=== PATIENT | female | born 1995 | race Caucasian/White ===

== ENCOUNTER 2016-08-03 17:20 | Emergency (ER) | payer BC ==
--- NOTE | 2016-08-03 17:31 | PDOC ---
Rapid Medical Evaluation Chief Complaint: Edema Time Seen by Provider: 08/03/16 17:24 Medical Evaluation: Allergies Allergy/AdvReac Type Severity Reaction Status Date / Time No Known Allergies Allergy Verified 08/03/16 17:24 08/03/16 17:26 RME Note: I have performed a brief, in-person evaluation of this patient . This patient presents with CC: referred by Dr May for acute sinusitis; with increase in facial swelling today; Wants CT scan ordered Pertinent PE findings are: VSS, no fever; severe sinus tenderness I have ordered: U preg; The patient will proceed to ED for further evaluation. JR
[2016-08-03 17:32] VITALS: BP 125/77; PULSE 71; TEMP 97.8; BMI 25.0
--- NOTE | 2016-08-03 20:26 | PDOC ---
History of Present Illness <Lydia Mauricio - Last Filed: 08/03/16 20:32> - History of Present Illness Initial Comments: 08/03/16 20:57 The patient is a 21 year old female, with a significant past medical history of sinusitis, nasal polyps, and heart murmur, who presents to the emergency department sent by Dr. May for CT scan of sinuses today. The patient also states she has recently been found to have preventricular contractions and is scheduled to wear a holter monitor for a few days next week. She denies chest pain, shortness of breath, headache and dizziness. She denies fever, chills, nausea, vomit, diarrhea and constipation. She denies dysuria, frequency, urgency and hematuria. Allergies: seasonal allergies and pet dander Past surgical history: right hip labral repair and left shoulder labral repair Social history: denies toxic habits ENT - Dr. May <Mahi Ibrahim - Last Filed: 08/03/16 20:59> - General Chief Complaint: Edema Stated Complaint: FACE SWOLLEN/lLT EAR PAIN/SINUS PRESSURE Time Seen by Provider: 08/03/16 17:24 Past History - Past Medical History Cardiac Disorders: Yes (MVP) Kidney Stones: Yes - Immunization History Immunization Up to Date: Yes - Psycho/Social/Smoking Cessation Hx Anxiety: No Suicidal Ideation: No Smoking Status: No Smoking History: Never smoked Have you smoked in the past 12 months: No Number of Cigarettes Smoked Daily: 0 Information on smoking cessation initiated: No Hx Alcohol Use: No Drug/Substance Use Hx: No Substance Use Type: None <Lydia Mauricio - Last Filed: 08/03/16 20:32> <Mahi Ibrahim - Last Filed: 08/03/16 20:59> - Past Medical History Allergies/Adverse Reactions: Allergies Allergy/AdvReac Type Severity Reaction Status Date / Time No Known Allergies Allergy Verified 08/03/16 17:24 Home Medications: Ambulatory Orders NK [No Known Home Medication] 08/03/16 Review of Systems - Review of Systems Able to Perform ROS?: Yes Comments:: 08/03/16 20:57 CONSTITUTIONAL: Absent: fever, chills, diaphoresis, generalized weakness, malaise, loss of appetite HEENT: (+) sinusitis. Absent: rhinorrhea, throat pain, throat swelling, difficulty swallowing, mouth swelling, ear pain, eye pain, visual Changes CARDIOVASCULAR: Absent: chest pain, syncope, palpitations, irregular heart rate, lightheadedness , peripheral edema RESPIRATORY: Absent: cough, shortness of breath, dyspnea with exertion, orthopnea, wheezing, stridor, hemoptysis GASTROINTESTINAL: Absent: abdominal pain, abdominal distension, nausea, vomiting, diarrhea, constipation, melena, hematochezia GENITOURINARY: Absent: dysuria, frequency, urgency, hesitancy, hematuria, flank pain, genital pain MUSCULOSKELETAL: Absent: myalgia, arthralgia, joint swelling SKIN: Absent: rash, itching, pallor HEMATOLOGIC/IMMUNOLOGIC: Absent: easy bleeding, easy bruising, lymphadenopathy, frequent infections ENDOCRINE: Absent: unexplained weight gain, unexplained weight loss, heat intolerance, cold intolerance NEUROLOGIC: Absent: headache, focal weakness or paresthesias, dizziness, unsteady gait, seizure, mental status changes, bladder or bowel incontinence PSYCHIATRIC: Absent: anxiety, depression, suicidal or homicidal ideation, hallucinations. <Mahi Ibrahim - Last Filed: 08/03/16 20:59> *Physical Exam - Vital Signs Last Vital Signs Temp Pulse Resp BP Pulse Ox 97.8 F 71 18 125/77 100 08/03/16 17:24 08/03/16 17:24 08/03/16 17:24 08/03/16 17:24 08/03/16 17:24 <Lydia Mauricio - Last Filed: 08/03/16 20:32> - Vital Signs Last Vital Signs Temp Pulse Resp BP Pulse Ox 97.8 F 71 18 125/77 100 08/03/16 17:24 08/03/16 17:24 08/03/16 17:24 08/03/16 17:24 08/03/16 17:24 - Physical Exam Comments: 08/03/16 20:58 GENERAL: Well developed, well nourished. Awake and alert. No acute distress. HEENT: Normocephalic, atraumatic. PERRLA, EOMI. No conjunctival pallor. Sclera are non- icteric. Moist mucous membranes. Oropharynx is clear. NECK: Supple. Full ROM. No JVD. Carotid pulses 2+ and symmetric, without bruits. No thyromegaly. No lymphadenopathy. CARDIOVASCULAR: Regular rate and rhythm. No murmurs, rubs, or gallops. Distal pulses are 2+ and symmetric. PULMONARY: No evidence of respiratory distress. Lungs clear to auscultation bilaterally. No wheezing, rales or rhonchi. ABDOMINAL: Soft. Non-tender. Non-distended. No rebound or guarding. No organomegaly. Normoactive bowel sounds. MUSCULOSKELETAL Normal range of motion at all joints. No bony deformities or tenderness. No CVA tenderness. EXTREMITIES: No cyanosis. No clubbing. No edema. No calf tenderness. SKIN: Warm and dry. Normal capillary refill. No rashes. No jaundice. NEUROLOGICAL: Alert, awake, appropriate. Cranial nerves 2-12 intact. Normoreflexic in the upper and lower extremities. Normal speech. Toes are down-going bilaterally. Gait is normal without ataxia. PSYCHIATRIC: Cooperative. Good eye contact. Appropriate mood and affect. <Mahi Ibrahim - Last Filed: 08/03/16 20:59> ED Treatment Course - ADDITIONAL ORDERS Additional order review: Laboratory Results 08/03/16 18:00 Urine HCG, Qual Negative - RADIOLOGY Radiology Studies Ordered: Category Date Time Status SINUS CT W/O CONTRAST [CT] Stat CT Scan 08/03/16 18:15 Completed <Lydia Mauricio - Last Filed: 08/03/16 20:32> - ADDITIONAL ORDERS Additional order review: Laboratory Results 08/03/16 18:00 Urine HCG, Qual Negative <Mahi Ibrahim - Last Filed: 08/03/16 20:59> Medical Decision Making - Medical Decision Making 08/03/16 20:32 pt seen by ENT today and sent for CT sinuses ct scan reveals acute and chronic sinusitis w either polyp or retention cyst -continue your antibiotics -follow up with Dr May - <Lydia Mauricio - Last Filed: 08/03/16 20:32> - Medical Decision Making 08/03/16 20:58 Dr. May was called twice before receiving a call back from his associate Dr. Moyer at 20:30. <Mahi Ibrahim - Last Filed: 08/03/16 20:59> *DC/Admit/Observation/Transfer <Lydia Mauricio - Last Filed: 08/03/16 20:32> - Attestations Scribe Attestion: 08/03/16 20:58 Documentation prepared by Mahi Ibrahim, acting as medical sociologist for Lydia Mauricio MD <Mahi Ibrahim - Last Filed: 08/03/16 20:59> Diagnosis at time of Disposition: Sinusitis Qualifiers: Sinusitis location: ethmoidal Chronicity: chronic Qualified Code(s): J32.2 - Chronic ethmoidal sinusitis - Discharge Dispostion Disposition: HOME Condition at time of disposition: Stable - Referrals Referrals: Reji Pete MD [Primary Care Provider] - - Patient Instructions Printed Discharge Instructions: DI for Sinusitis Additional Instructions: please followup with Dr May Take your antibiotics
== END 2016-08-03 20:38 | disposition home or self-care (01) ==
LOC: JER 17:20
DX: J32.2 Chronic ethmoidal sinusitis (principal); I34.1 Nonrheumatic mitral (valve) prolapse; Z87.442 Personal history of urinary calculi
CPT/HCPCS: 70486-TC; 84703; 99282-25

== ENCOUNTER 2016-09-16 09:47 | Day surgery (SDC) | payer BC ==
[2016-09-15 11:57] VITALS: BMI 24.0
--- NOTE | 2016-09-15 19:21 | PREOP ---
DATE OF ADMISSION: 09/16/2016 ADMISSION DIAGNOSIS: Nasoseptal deviation, chronic pansinusitis, large galo bullosa. HISTORY OF PRESENT ILLNESS: This 21-year-old female has had a long history of nasal and sinus problems, which have failed to improve with appropriate and aggressive medical therapy. She has been on numerous antibiotics as well as nasal sprays. She has purulent nasal drainage as well as headache, nasal congestion, postnasal drainage, and sinus pressure. There are no visual disturbances. She has had accompanying mouth breathing and throat pain. She has been found to have chronic pansinusitis as well as deviation of the septum on CT scan, is now admitted for nasal septoplasty and endoscopic sinus surgery. PAST MEDICAL HISTORY: Primary medical doctor is Reji Pete MD. Her past medical history includes mitral valve prolapse, kidney stones, food allergies, exercise-induced asthma. Past medical history also includes fibromyalgia. She has never smoked. There are no allergies to medications. Present medications include fluticasone nasal spray, cetirizine, Nuvaring, Singulair. Her past surgical history includes a right hip bone spur and left shoulder surgery. She has had general anesthesia with some postoperative nausea. Bleeding history is negative. Family history is negative for bleeding problems. Her mother did have a possible reaction to an anesthetic. EXAMINATION: The patient is a well-developed female in no acute distress. Head is normal. Eyes clear. Ears unremarkable. The nose has significant nasal congestion. The nasal septum is intact but significantly deviated. Mucosa is edematous and there is thick mucus. Polyps are present, left greater than right, and there is significant polypoid degeneration of the left middle turbinate. The middle meatus also has polyps. Sphenoethmoid recess is difficult to visualize. The nasopharynx is clear. DATA: Preoperative labs are pending. CT scan of the paranasal sinuses performed at [facility] on August 03, 2016, demonstrates moderate deviation of the septum to the right. There is a moderate partially opacified galo bullosa in the left middle turbinate. There is partial opacification of the ethmoid air cells and thickening of the bilateral maxillary sinuses including a retention cyst or polyp on the left measuring 1.7 cm. Partial opacification of the sphenoid sinuses is seen with thickening of the frontal sinuses. The sphenoethmoid recesses are obstructed bilateral and there is also obstruction of the bilateral maxillary ostia and obstruction of the right and left frontoethmoid recesses. IMPRESSION: Chronic pansinusitis, nasal septal deviation, left galo bullosa. PLAN: Endoscopic sinus surgery to address ethmoid, maxillary, sphenoid, and frontal sinuses, nasal septoplasty, and excision of galo bullosa under general anesthesia. INFORMED CONSENT: The patient understands the indications, alternatives, nature, risks and benefits of the proposed surgery, potential complications including but not limited to anesthesia, bleeding, infection, recurrence, numbness, hole in the septum, reduced sense of smell, eye injury and brain injury were discussed in detail. She understands and accepts these risks and wishes to proceed with surgery. Questions are answered fully. KEATON ELIZONDO M.D. AVRIL/[id number]
--- NOTE | 2016-09-16 12:49 | HP ---
History & Physical Update - History History: No Change - Physical Physical: No Change - Assessment Assessment: No Change - Plan Plan: No Change
[2016-09-16] MEDS ORDERED: LIDOCAINE 1%/EPI 1:100000 (50 ML MULTI DOSE VIAL) ONE (12:50)
[2016-09-16] MEDS ORDERED: MIDAZOLAM HCL 2 MG/2 ML SINGLE DOSE VIAL ONE ×2 (12:58)
[2016-09-16] MEDS ORDERED: COCAINE HCL 4% TOPICAL SOLUTION 4 ML BOTTLE TP ONE ×2 (12:58→13:53)
[2016-09-16] MEDS ORDERED: PROPOFOL 20 ML ONE (12:59)
[2016-09-16] MEDS ORDERED: ROCURONIUM BROMIDE 50 MG/5 ML VIAL ONE (12:59)
[2016-09-16] MEDS ORDERED: DEXAMETHASONE SOD PHOSPHATE 4 MG/1 ML VIAL ONE (13:46)
[2016-09-16] MEDS ORDERED: LIDOCAINE 1%/EPI 1:100000 (50 ML MULTI DOSE VIAL) PNB ONE (13:52)
[2016-09-16] MEDS ORDERED: DESFLURANE GAS 240 ML BOTTLE IH ONE (14:12)
[2016-09-16] MEDS ORDERED: BACITRACIN 15 GM TUBE TOPICAL OINTMENT ONE (14:55)
[2016-09-16] MEDS ORDERED: NEOSTIGMINE METHYLSULFATE 0.5 MG/ML - 10 ML MDV ONE (15:04)
[2016-09-16] MEDS ORDERED: oxyCODONE HCL 5 MG TABLET PO PRN (15:20)
[2016-09-16] MEDS ORDERED: ACETAMINOPHEN 325 MG TABLET (FP) PO PRN (15:20)
[2016-09-16] MEDS ORDERED: TRIMETHOBENZAMIDE HCL 200MG/2ML INJ IM PRN (15:20)
[2016-09-16] MEDS ORDERED: PROMETHAZINE HCL 25 MG/1 ML VIAL IVPUSH PRN (15:26)
[2016-09-16] MEDS ORDERED: ONDANSETRON 4 MG/2 ML VIAL IVPUSH PRN (15:26)
--- NOTE | 2016-09-16 15:27 | OP ---
Operative Note - Note: Operative Date: 09/16/16 Pre-Operative Diagnosis: chronic pansinusitis, left galo bullosa, inferior turbinate hypertrophy, deviated septum Operation: bilateral endoscopic ethmoidectomy, anterior and posterior, bilateral endoscopic maxillary antrostomy, endoscopic resection of left galo bullosa, partial resection right middle turbinate, image guidance; balloon sinuplasty bilateral frontal and bilateral sphenoid sinuses; bilateral infeior turbinate therapeutic outfracture and mural cauterization Findings: chronic sinusitis allegra ethmoid, maxillary obstructed frontoethmoidal and sphenoethmoid recesses large galo bullosa left right middle turbinate hypertrophy inferior turbinate hypertrophy deviated septum, impact not significant after treatment of middle and inferior turbinates. Implants: none Post-Operative Diagnosis: Same as Pre-op Surgeon: Dong May Anesthesiologist/PAYMENT MANAGER: Cosme Vázquez Anesthesia: General Specimens Removed: left middle turbinate/ethmoid tissue. right middle turbinate /ethmoid tissue Estimated Blood Loss (mls): 30 Blood Volume Replaced (mls): 0 Operative Report Dictated: Yes
[2016-09-16] MEDS ORDERED: LACTATED RINGERS SOLUTION 1,000 ML IV SCH (15:30)
[2016-09-16] MEDS ORDERED: ONDANSETRON 4 MG/2 ML VIAL ONE (16:52)
[2016-09-16 17:47] VITALS: TEMP 98.5
[2016-09-16 19:00] VITALS: BP 126/67; PULSE 77
--- NOTE | 2016-09-18 14:01 | PATH ---
Surgical Pathology Report Patient Name: AGNES HERZOG Med. Rec. #: [id number] /Age/Gender: 1995 (Age: 21) / F Account: [id number] Location: [facility] SURGICAL Taken: 09/16/2016 Received: 09/17/2016 Reported: 09/18/2016 Physicians: Dong May M.D. Specimen(s) Received A: LEFT MIDDLE & TURBINATE & ETHMOID TISSUE B: RIGHT MIDDLE TURBINATE & ETHMOID TISSUE Clinical History Deviated nasal septum Final Diagnosis A. MIDDLE TURBINATE AND ETHMOID TISSUE, LEFT, RESECTION: BENIGN SINONASAL MUCOSA WITH CHRONIC INFLAMMATION AND FIBROSIS AND FRAGMENTS OF SCLEROTIC APPEARING BONE. B. MIDDLE TURBINATE AND ETHMOID TISSUE, RIGHT, RESECTION: BENIGN SINONASAL MUCOSA WITH CHRONIC INFLAMMATION AND FIBROSIS AND FRAGMENTS OF SCLEROTIC APPEARING BONE. Electronically Signed Job Hunt M.D. Gross Description A. Received in formalin labeled "left middle turbinate and ethmoid tissue" is a 3.8 x 2.5 x 0.3 cm aggregate of gonsalez, irregular portions of cartilage and possible bone. Saute Chef sections are submitted in one cassette, following decalcification. B. Received in formalin labeled "right middle turbinate and ethmoid tissue" is a 1.8 x 1.5 x 0.2 cm aggregate of gonsalez soft tissue, cartilage and bone fragments. A solar sales representative and assessor portion is submitted in one cassette, following decalcification. /09/17/201609/17/2016
--- NOTE | 2016-09-26 07:14 | OP ---
DATE OF OPERATION: 09/16/2016 PREOPERATIVE DIAGNOSIS: Chronic pansinusitis, left galo bullosa, inferior turbinate hypertrophy, deviated septum. POSTOPERATIVE DIAGNOSIS: Chronic pansinusitis, left galo bullosa, inferior turbinate hypertrophy, deviated septum. PROCEDURE: Bilateral endoscopic ethmoidectomy anterior and posterior. Bilateral endoscopic maxillary enterostomy. Endoscopic resection of left galo bullosa. Partial resection of right middle turbinate. Image guidance. Balloon sinuplasty bilateral frontal sinuses. Balloon sinuplasty bilateral sphenoid sinuses. Bilateral inferior turbinate therapeutic outfracture and mirror cauterization. SURGEON: Dong May MD ANESTHESIOLOGIST: Cosme Vázquez MD ANESTHESIA: General via endotracheal tube. INDICATIONS: This a 21-year-old female has had chronic sinus problems, which have failed to improve with appropriate medical therapy. CT scan demonstrates marked ethmoid and maxillary sinus disease as well as obstruction of the frontal and sphenoid recesses without air-fluid levels in the frontal or sphenoid. There is also some deviation of the septum and a massive left galo bullosa. She is now referred for surgical treatment. FINDINGS: Mild deviation of the septum without obstruction following turbinate surgery, inferior turbinate hypertrophy primarily soft tissue, massive left galo bullosa with obstruction, right middle turbinate hypertrophy with obstruction, chronic sinusitis ethmoid and maxillary sinuses, narrowed frontal and sphenoid drainage pathways. DESCRIPTION OF PROCEDURE: The patient was brought to the operating room and placed on the operating room table in supine position. General endotracheal anesthesia was induced to a satisfactory level. She was prepped and draped in the usual fashion for surgery. CT scan images were utilized with the madvertise device, and she was properly registered. Lidocaine with epinephrine was infiltrated, and cocaine 4 % was packed within the nasal cavities. Nasal endoscopy was performed with a 0-degree telescope. Deviation of the septum was obtained primarily to the left side posteriorly. A massive left galo bullosa was seen. Nasal pharynx was clear. Significant polypoid disease was found at both middle turbinates. The middle turbinates were injected with lidocaine with epinephrine, and lateral nasal buitrago were also injected. Cocaine 4% was injected within the middle meatus. Initially, the Entellus sinus balloon was attempted to be passed into the frontal sinuses; however, the significant middle turbinate hypertrophy prevented this; therefore, turbinate work was performed first. The left galo bullosa was incised with a sickle knife, and the scissors were then used to incise the galo bullosa. A small mucopyocoele was found within this. The lateral lamella was removed. The medial lamella was also trimmed inferiorly. The remnant was cauterized. Significant improvement in the middle meatus was obtained. Partial resection of the right middle turbinate was also performed, and the remnant was cauterized. Next, the Entellus balloon was then utilized. Initially the Medtronic Fusion was used with the frontal ostium seeker, and the frontal ostium was identified. Next, the left frontal ostium was cannulated with the Entellus balloon. The left frontal sinus transilluminated. The balloon was advanced and inflated for 20 seconds and then deflated and the assembly was removed. Next, the procedure was repeated on the right frontal sinus. Again, the ostium was identified and confirmed with the Medtronic Fusion. The Entellus balloon was then advanced and position confirmed with transillumination. The balloon was advanced, inflated for 20 seconds, and then deflated. The assembly was removed. Attention was then turned to the sphenoid sinuses. The guide was then straightened using bending tool. The left sphenoid ostium was identified and cannulated, the balloon advanced and inflated for 20 seconds. It was deflated and removed. The right sphenoidotomy was also identified, cannulated with the Entellus balloon with balloon advanced, inflated, and then deflated. Patent sphenoid ostia were observed afterwards. Attention was then turned toward the ethmoid sinuses. The upbiting forceps and the microdebrider were then used. The uncinate process was removed on the left side. Anterior and then posterior ethmoidectomy was performed on the left. The lamina propria and the fovea ethmoidalis were preserved. Significantly diseased tissue was removed. Next, the maxillary sinus ostium was obtained with bulb tip seeker and then enlarged with a back biting and forward biting forceps. The anterior of the sinus was examined, and reversibly diseased tissue was found. Attention was then turned toward the right paranasal sinuses. The right ethmoid sinus was then opened. The uncinate process was removed. The anterior and then posterior ethmoidectomy was performed with the ethmoid forceps and the microdebrider. The lamina propria and the fovea ethmoidalis were preserved. Again, diseased tissue was identified and removed. The right maxillary sinus was then treated by identifying the natural ostium and then enlarged with the reverse and forward biting forceps. Again, the anterior of the sinuses was examined, and there were no irreversible lesions. The wall of sinus was opened. The nasal septum was identified, and the deviation, though present, did not impair the airway nor did it impair sinus drainage. Therefore, septoplasty was deferred. Finally, significant anterior turbinate hypertrophy was identified. Therapeutic outfracture was performed bilaterally and the mirror cauterization with the suction cautery was performed in an island fashion. The patient tolerated the procedure well. NasoPore dressings were placed within the ethmoid cavities bilaterally. Folded Telfa gauze was then placed coated with antibiotic ointment in the inferior nasal cavities keeping the inferior turbinates in a lateralized position. The patient tolerated the procedure well. She was then awakened from general anesthesia and transferred to PACU in stable condition. Estimated blood loss was 30 mL. She received crystalloid during the procedure. Specimen included left middle turbinate and ethmoid tissue and right middle turbinate and ethmoid tissue, which were sent to Pathology for routine studies. There were no complications. Dong May MD /[id number] Dong May MD MTDD
== END 2016-09-16 19:00 | disposition home or self-care (01) ==
LOC: JASU-SURG 09:47
PROVIDERS: ATTEND Otolaryngology
PROC: 09TV4ZZ Resection of Left Ethmoid Sinus, Percutaneous Endoscopic Approach (ICD-10-PCS; 2016-09-16)
PROC: 09TU4ZZ Resection of Right Ethmoid Sinus, Percutaneous Endoscopic Approach (ICD-10-PCS; 2016-09-16)
PROC: 099R4ZZ Drainage of Left Maxillary Sinus, Percutaneous Endoscopic Approach (ICD-10-PCS; 2016-09-16)
PROC: 099Q4ZZ Drainage of Right Maxillary Sinus, Percutaneous Endoscopic Approach (ICD-10-PCS; 2016-09-16)
PROC: 09QT4ZZ Repair Left Frontal Sinus, Percutaneous Endoscopic Approach (ICD-10-PCS; 2016-09-16)
PROC: 09QX4ZZ Repair Left Sphenoid Sinus, Percutaneous Endoscopic Approach (ICD-10-PCS; 2016-09-16)
PROC: 09QW4ZZ Repair Right Sphenoid Sinus, Percutaneous Endoscopic Approach (ICD-10-PCS; 2016-09-16)
PROC: 09QS4ZZ Repair Right Frontal Sinus, Percutaneous Endoscopic Approach (ICD-10-PCS; 2016-09-16)
PROC: 8E09XBZ Computer Assisted Procedure of Head and Neck Region (ICD-10-PCS; principal; 2016-09-16 11:00)
DX: J32.4 Chronic pansinusitis (principal); J34.3 Hypertrophy of nasal turbinates; J34.2 Deviated nasal septum
CPT/HCPCS: 84703; 88304-TC; 88311-TC; 94760